=== PATIENT | female | born 1980 | race African-American/Black ===

== ENCOUNTER 2020-08-03 11:24 | Inpatient (IN) | payer OTHER ==
[2020-08-03 13:34] VITALS: BMI 25.0
[2020-08-03] MEDS ORDERED: BISMUTH SUBSALICYLATE 262 MG/15 ML BTL PO PRN (14:38)
[2020-08-03] MEDS ORDERED: diazePAM 5 MG TABLET PO PRN (14:38)
[2020-08-03] MEDS ORDERED: METHOCARBAMOL 500 MG TABLET PO PRN (14:38)
[2020-08-03] MEDS ORDERED: IBUPROFEN 400 MG TABLET (FP) PO PRN (14:38)
[2020-08-03] MEDS ORDERED: MAGNESIUM CITRATE 300 ML BOTTLE PO PRN (14:38)
[2020-08-03] MEDS ORDERED: ACETAMINOPHEN 325 MG TABLET (FP) PO PRN ×2 (14:38)
[2020-08-03] MEDS ORDERED: ONDANSETRON *ODT* 4 MG TABLET SL PRN (14:38)
[2020-08-03] MEDS ORDERED: MAG HYDROX/AL HYDROX/SIMETH 30 ML UNIT-DOSE CUP PO PRN (14:38)
[2020-08-03] MEDS ORDERED: MENTHOL/PHENOL 1 EACH UD MM PRN (14:38)
[2020-08-03] MEDS ORDERED: MAGNESIUM HYDROX 2400MG/30ML ORAL SUSPENSION 30 ML CUP PO PRN (14:38)
[2020-08-03] MEDS: PRENATAL VITAMINS W/ FOLIC ACID TABLET (FP) PO SCH (15:48)
[2020-08-03] MEDS: diazePAM 5 MG TABLET PO SCH ×2 (17:10→22:31)
[2020-08-03] MEDS: hydrOXYzine PAMOATE 25 MG CAPSULE (FP) PO SCH ×2 (17:12→22:31)
[2020-08-03] MEDS: THIAMINE HCL 100 MG TABLET (FP) PO SCH (22:30)
[2020-08-03] MEDS: MELATONIN 5 MG TABLETS PO SCH (22:31)
[2020-08-04] MEDS: hydrOXYzine PAMOATE 25 MG CAPSULE (FP) PO SCH ×5 (06:06→22:06)
[2020-08-04] MEDS: diazePAM 5 MG TABLET PO SCH ×4 (06:06→22:06)
[2020-08-04] MEDS: PRENATAL VITAMINS W/ FOLIC ACID TABLET (FP) PO SCH (10:36)
[2020-08-04 11:15] LABS: HEMATOCRIT 41.9 % (32.4-45.2); HEMOGLOBIN 14.2 GM/dL (10.7-15.3); MCH 33.5 pg (25.7-33.7); MEAN CELL VOLUME 98.7 fl (80-96); PLATELET COUNT 305 K/MM3 (134-434); RBC 4.25 M/mm3 (3.60-5.2); RDW 13.9 % (11.6-15.6); WHITE BLOOD COUNT 10.2 K/mm3 (4.0-10.0)
[2020-08-04 11:19] LABS: CHLORIDE 106 mmol/L (98-107); SODIUM 136 mmol/L (136-145)
[2020-08-04 11:29] LABS: ALBUMIN 4.4 g/dl (3.4-5.0); BLOOD UREA NITROGEN 10.6 mg/dL (7-18); CO2 27 mmol/L (21-32); GLUCOSE,RANDOM 75 mg/dL (74-106)
[2020-08-04 11:32] LABS: BILIRUBIN,TOTAL 1.2 mg/dL (0.2-1); SGOT/AST 21 U/L (15-37); SGPT/ALT 17 U/L (13-61)
[2020-08-04 11:34] LABS: ALK PHOS 83 U/L (45-117)
[2020-08-04 11:35] LABS: TOT PROT 7.6 g/dl (6.4-8.2)
[2020-08-04 11:39] LABS: ANION GAP 4 MMOL/L (8-16)
[2020-08-04] MEDS: THIAMINE HCL 100 MG TABLET (FP) PO SCH (22:06)
[2020-08-04] MEDS: MELATONIN 5 MG TABLETS PO SCH (22:06)
[2020-08-05] MEDS: hydrOXYzine PAMOATE 25 MG CAPSULE (FP) PO SCH ×3 (06:44→13:39)
[2020-08-05] MEDS: diazePAM 5 MG TABLET PO SCH ×3 (06:44→22:19)
[2020-08-05] MEDS: PRENATAL VITAMINS W/ FOLIC ACID TABLET (FP) PO SCH (10:26)
[2020-08-05] MEDS ORDERED: diazePAM 5 MG TABLET PO PRN (15:32)
[2020-08-05] MEDS: MELATONIN 5 MG TABLETS PO SCH (22:19)
[2020-08-05] MEDS: THIAMINE HCL 100 MG TABLET (FP) PO SCH (22:19)
[2020-08-06] MEDS ORDERED: diazePAM 5 MG TABLET PO SCH (06:00)
[2020-08-06] MEDS: PRENATAL VITAMINS W/ FOLIC ACID TABLET (FP) PO SCH (11:13)
[2020-08-06 13:47] VITALS: BP 112/74; PULSE 65; TEMP 98.1
[2020-08-07] MEDS ORDERED: diazePAM 5 MG TABLET PO ONE (06:00)
== END 2020-08-06 14:10 | disposition home or self-care (01) | DRG 774 ==
LOC: YASAS 11:24 → UNDOADMIN 15:12 → Y6N 15:12
PROVIDERS: ADMIT Allergy & Immunology; ATTEND Allergy & Immunology
PROC: HZ2ZZZZ Detoxification Services for Substance Abuse Treatment (ICD-10-PCS; principal; 2020-08-03)
DX: F10.230 Alcohol dependence with withdrawal, uncomplicated (principal); F14.20 Cocaine dependence, uncomplicated; F12.20 Cannabis dependence, uncomplicated; F19.24 Other psychoactive substance dependence with psychoactive substance-induced mood disorder; F43.10 Post-traumatic stress disorder, unspecified; E87.6 Hypokalemia; G43.909 Migraine, unspecified, not intractable, without status migrainosus; L74.512 Primary focal hyperhidrosis, palms; L74.513 Primary focal hyperhidrosis, soles; Z62.810 Personal history of physical and sexual abuse in childhood; Z91.410 Personal history of adult physical and sexual abuse; Z87.891 Personal history of nicotine dependence
CPT/HCPCS: 36415; 80053; 81025; 84132; 85027; 86780; 93005; 93010; C9803; U0003; U0005